=== PATIENT | female | born 1950 ===

== ENCOUNTER 2017-12-10 10:13 | Outpatient (CLI) | payer OTHER ==
[~2017-12-10] VITALS: Ht 172.7 cm; Wt 117.9 kg
== END 2017-12-10 18:02 | disposition home or self-care (01) ==
LOC: OFIC 805 10:13
DX: M26.603 Bilateral temporomandibular joint disorder, unspecified (principal); H60.593 Other noninfective acute otitis externa, bilateral; H61.23 Impacted cerumen, bilateral